=== PATIENT | female | born 1945 | race Caucasian/White ===

== ENCOUNTER 2019-01-17 18:50 | Emergency (ER) | payer OTHER ==
[~2019-01-17] VITALS: Ht 154.9 cm; Wt 79.4 kg
[2019-01-17 18:54] VITALS: BP 142/85; Ht 154.9 cm; Wt 79.4 kg
== END 2019-01-17 20:15 | disposition left against medical advice (07) ==
LOC: ED 18:50
DX: Z53.21 Procedure and treatment not carried out due to patient leaving prior to being seen by health care provider (principal)